=== PATIENT | female | born 1940 | race Caucasian/White ===

== ENCOUNTER 2016-09-25 08:59 | Day surgery (SDC) | payer BC ==
[~2016-09-25] VITALS: Ht 154.9 cm; Wt 71.8 kg
[~2016-09-25 08:59] MED LIST: ALLOPURINOL100 MG PO; BACLOFEN10 MG PO; CALTRATE PLUS1 EACH PO; CLONIDINE HCL0.1 MG PO; CYANOCOBALAM1000 MCG PO; DAILY MULTIPLE1 EACH PO; EFFEXOR37.5 MG PO; FISH OIL 1,0001 EAC7 PO; HYDROCODON-ACE1 EAC7 PO; LEVOTHYROXINE75 MCG PO; LIPITOR10 MG PO; LISINOPRIL-HCT1 EAC3 PO; LO-DOSE ASPIRIN81 M2 PO; PRAMIPEXOLE D0.75 MG PO; SERTRALINE HCL100 MG PO; VERAPAMIL HCL240 MG PO
[2016-09-25 09:31] VITALS: BP 159/85
[2016-09-25 17:56] VITALS: BP 132/64
[2016-09-25 19:47] VITALS: BP 133/77
[2016-09-26 00:11] VITALS: BP 120/65
[2016-09-26 05:28] VITALS: BP 128/62
[2016-09-26 08:00] VITALS: BP 147/74
[2016-09-26 12:11] VITALS: BP 139/68
[2016-09-26 16:23] VITALS: BP 142/77
== END 2016-09-26 17:00 | disposition home or self-care (01) ==
LOC: SDC 08:59 → 3EAST 15:22 → 2SOUTH 15:30 → SDC 15:30 → 2SOUTH 17:08 → 3EAST 17:08
PROC: 00NY0ZZ Release Lumbar Spinal Cord, Open Approach (ICD-10-PCS; principal; 2016-09-25)
DX: M48.06 Spinal stenosis, lumbar region (principal); M54.16 Radiculopathy, lumbar region; I10 Essential (primary) hypertension; E78.00 Pure hypercholesterolemia, unspecified; G47.30 Sleep apnea, unspecified; F41.9 Anxiety disorder, unspecified; Z79.82 Long term (current) use of aspirin; E03.9 Hypothyroidism, unspecified
CPT/HCPCS: 72020; 76000; 94799; G0378; J0330; J0690; J1100; J2250; J2405; J2710; J3010; J3480; S0020